=== PATIENT | female | born 1995 | race Caucasian/White ===

== ENCOUNTER 2023-04-07 21:42 | Emergency (ER) | payer BC, OTHER ==
[2023-04-07] MEDS ORDERED: Sodium Chloride 0.9% 10 ML Syringe FLUSH PRN (22:03)
[2023-04-07] MEDS ORDERED: Lactated Ringers 1,000 ML IV SCH (22:15)
[2023-04-07 22:26] LABS: BASOPHILS PERCENT AUTO 0.1 % (0.0-1.0); EOSINOPHILS PERCENT AUTO 0.5 % (1.0-3.0); HEMATOCRIT 41.5 % (37.0-47.0); HEMOGLOBIN 13.7 g/dL (12.0-16.0); LYMPHOCYTES PERCENT AUTO 34.8 % (20.5-50.1); MEAN CORPUSCULAR HEMOGLOBIN 29.2 pg (27.0-34.0); MEAN CORPUSCULAR VOLUME 88.5 fL (80-100); MONOCYTES PERCENT AUTO 9.4 % (2-8); NEUTROPHILS PERCENT AUTO 55.2 % (42.2-75.2); PLATELET COUNT,PLT 341 10^3/uL (150-450); RED BLOOD CELL COUNT 4.69 10^6/uL (4.2-5.4); WHITE BLOOD CELL COUNT,WBC 7.4 10^3/uL (5.0-10.0)
[2023-04-07 22:42] LABS: A/G RATIO 0.9; ALANINE AMINOTRANSFERASE,ALT 24 U/L (14-59); ALBUMIN 3.7 g/dL (3.4-5.0); ALKALINE PHOSPHATASE 41 U/L (46-116); ANION GAP 20.9 mEq/L (7-13); ASPARTATE AMNIOTRANSFERASE,AST 14 U/L (15-37); BILIRUBIN TOTAL 0.3 mg/dL (0.2-1.0); BLOOD UREA NITROGEN,BUN 7 mg/dL (7-18); BUN/CREATININE RATIO 8.8 (No establ ref range); CALCIUM 8.4 mg/dL (8.5-10.1); CARBON DIOXIDE,CO2 21 mmol/L (21-32); CHLORIDE,CL 102 mmol/L (98-107); ETHANOL BLOOD MEDICAL 204 mg/dL (0); GLUCOSE RANDOM 128 mg/dL (70-99); POTASSIUM,K 2.9 mmol/L (3.5-5.1); PROTEIN TOTAL,TP 7.6 g/dL (6.4-8.2); SODIUM,NA 141 mmol/L (136-145)
[2023-04-07 22:43] LABS: ESTIMATED GFR 102 mL/min (>=60)
[2023-04-07] MEDS ORDERED: Potassium Chloride 20 MEQ in Premix Bag 1 BAG IV ONE (22:45)
[2023-04-07 22:46] LABS: HCG QUALITATIVE,SERUM NEGATIVE (NEGATIVE)
[2023-04-07 22:46] LABS: AMPHETAMINES,URINE NEGATIVE (NEGATIVE); BARBITURATES,URINE NEGATIVE (NEGATIVE); BENZODIAZEPINE,URINE NEGATIVE (NEGATIVE); MDMA (ECSTASY), URINE NEGATIVE (NEGATIVE); METHADONE,URINE NEGATIVE (NEGATIVE); METHAMPHETAMINES,URINE NEGATIVE (NEGATIVE); OPIATES,URINE NEGATIVE (NEGATIVE); OXYCODONE,URINE NEGATIVE (NEGATIVE); PHENCYCLIDINE,URINE NEGATIVE (NEGATIVE); TCA,URINE NEGATIVE (NEGATIVE)
[2023-04-07] MEDS ORDERED: Take Home: Potassium Chloride 10 MEQ Tab, 10 Tab Pack PO ONE (22:47)
[2023-04-07 23:31] VITALS: BP 108/72; PULSE 77
== END 2023-04-08 00:53 | disposition home or self-care (01) ==
LOC: DL.ED 21:42
DX: F10.921 Alcohol use, unspecified with intoxication delirium (principal); E87.6 Hypokalemia; Z88.8 Allergy status to other drugs, medicaments and biological substances
CPT/HCPCS: 36415; 80053; 80305-QW; 80307; 83735; 84703; 85025; 96361; 96365; 96366; 99283; 99284-25; A9270-GY; J3480; J3490; J7120

== ENCOUNTER 2024-08-01 22:58 | Emergency (ER) | payer OTHER ==
[2024-08-01] MEDS ORDERED: Sodium Chloride 0.9% 10 ML Syringe FLUSH PRN (23:45)
[2024-08-02 00:16] LABS: BASOPHILS PERCENT AUTO 0.1 % (0.0-1.0); EOSINOPHILS PERCENT AUTO 0.5 % (1.0-3.0); HEMATOCRIT 44.7 % (37.0-47.0); HEMOGLOBIN 15.1 g/dL (12.0-16.0); LYMPHOCYTES PERCENT AUTO 5.4 % (20.5-50.1); MEAN CORPUSCULAR HEMOGLOBIN 30.1 pg (27.0-34.0); MEAN CORPUSCULAR HGB CONC 33.8 g/dL (33.0-35.0); MEAN CORPUSCULAR VOLUME 89.2 fL (80-100); MONOCYTES PERCENT AUTO 5.6 % (2-8); NEUTROPHILS PERCENT AUTO 88.4 % (42.2-75.2); PLATELET COUNT,PLT 303 10^3/uL (150-450); RED BLOOD CELL COUNT 5.01 10^6/uL (4.2-5.4); WHITE BLOOD CELL COUNT,WBC 16.8 10^3/uL (5.0-10.0)
[2024-08-02] MEDS: Lactated Ringers 1,000 ML IV ONE (00:16)
[2024-08-02 00:36] LABS: A/G RATIO 1.1; ALANINE AMINOTRANSFERASE,ALT 28 U/L (14-59); ALBUMIN 4.4 g/dL (3.4-5.0); ALKALINE PHOSPHATASE 60 U/L (46-116); ANION GAP 11.1 mEq/L (7-13); ASPARTATE AMNIOTRANSFERASE,AST 17 U/L (15-37); BILIRUBIN TOTAL 0.6 mg/dL (0.2-1.0); BLOOD UREA NITROGEN,BUN 17 mg/dL (7-18); BUN/CREATININE RATIO 16.2 (No establ ref range); CALCIUM 9.6 mg/dL (8.5-10.1); CARBON DIOXIDE,CO2 26 mmol/L (21-32); CHLORIDE,CL 104 mmol/L (98-107); CREATININE 1.05 mg/dL (0.55-1.02); EST CRCL DRUG DOSING (CG) 79.03 mL/min; GLUCOSE RANDOM 127 mg/dL (70-99); LIPASE 27 U/L (16-77); MAGNESIUM 1.8 mg/dL (1.8-2.4); POTASSIUM,K 4.1 mmol/L (3.5-5.1); PROTEIN TOTAL,TP 8.5 g/dL (6.4-8.2); SODIUM,NA 137 mmol/L (136-145)
[2024-08-02 00:39] LABS: LACTIC ACID 1.4 mmol/L (0.4-2.0)
[2024-08-02 00:44] LABS: ESTIMATED GFR 73 mL/min (>=60); ETHANOL BLOOD MEDICAL < 3 mg/dL (0)
[2024-08-02] MEDS: Take Home: Ondansetron 4 MG Tab.DIS, 5 Tab Pack PO ONE (01:07)
[2024-08-02 01:15] VITALS: BP 123/65; PULSE 107
== END 2024-08-02 01:23 | disposition home or self-care (01) ==
LOC: DL.ED 22:58
DX: A08.4 Viral intestinal infection, unspecified (principal); E66.9 Obesity, unspecified; Z88.8 Allergy status to other drugs, medicaments and biological substances; Z68.32 Body mass index [BMI] 32.0-32.9, adult
CPT/HCPCS: 36415; 70450; 80053; 80307; 83605; 83690; 83735; 85025; 96360; 99284; J7120; Q0162; 99283